=== PATIENT | female | born 1990 | race Caucasian/White ===

== ENCOUNTER 2020-10-24 09:24 | Inpatient (IN) | payer OTHER ==
[2020-10-24] MEDS ORDERED: Sodium Chloride 0.9% 10 ML Syringe FLUSH PRN (11:42)
[2020-10-24] MEDS ORDERED: Nalbuphine 10 MG/1 ML Vial IVPUSH PRN (11:42)
[2020-10-24] MEDS ORDERED: Lidocaine 1% 50 ML MDV INJECT ONE (11:42)
[2020-10-24] MEDS ORDERED: Ondansetron 4 MG/2 ML SDV IVPUSH PRN (11:42)
[2020-10-24] MEDS ORDERED: Oxytocin/Lactated Ringers 10 UNIT/1,000 ML BAG IV SCH (11:45)
[2020-10-24] MEDS ORDERED: Lactated Ringers 1,000 ML IV SCH (11:45)
--- NOTE | 2020-10-24 12:18 | PCM.LDHP ---
L&D History of Present Illness - General Date of Service: 10/24/20 Admit Problem/Dx: Patient Status Order with Admit Dx/Problem 10/24/20 11:42 Patient Status [ADT] Routine Admission Diagnosis/Problem Admission Diagnosis/Problem - History of Present Illness Introduction:: Patient is a 30yo at 39 0/7 weeks gestation who presents today for regular painful contractions that began at 0230 this morning. They are increasing in strength and frequency. She denies vaginal bleeding or leakage. She has been perceiving adequate movements. She had good care. complications: none OB Labs: Blood Type: A+ Ab screen: Negative Hep B sAg: Negative HIV: Negative RPR: Negative Rubella: Immune GC/Chlamydia: Negative Glucose screen: Passed 1 hr GBS: Negative - Related Data Allergies/Adverse Reactions: Allergies Allergy/AdvReac Type Severity Reaction Status Date / Time No Known Allergies Allergy Verified 10/24/20 09:36 H&P Review of Systems - Review of Systems: Review Of Systems: Comprehensive ROS is negative, except as noted in HPI. L&D Exam - Exam Exam: See Below - Vital Signs Weight: 73.573 kg - Carter Score Carter Score Cervix Position: Posterior Carter Score Consistency: Soft Carter Score Effacement: 51-70% Carter Score Dilation: 3-4 cm Carter Score 's Station: -2 Carter Score Total: 7 - Exam General: Alert, Oriented Lungs: Clear to Auscultation, Normal Respiratory Effort Cardiovascular: Regular Rate, Regular Rhythm, Normal S1, Normal S2 Extremities: No Pedal Edema Skin: Warm, Dry, Intact Neurological: No: Clonus - Problem List (1) Active labor at term SNOMED Code(s): 65623536 ICD Code: [id number] - Status: Acute Current Visit: Yes (2) Term SNOMED Code(s): 70648270 ICD Code: Z34.90 - ENCNTR FOR SUPRVSN OF NORMAL , UNSP, UNSP TRIMESTER Status: Acute Current Visit: Yes Problem List Initiated/Reviewed/Updated: Yes Orders Last 24hrs: Active Orders 24 hr Category Date Time Status Patient Status [ADT] Routine ADT 10/24/20 11:42 Active Activity as Tolerated [RC] PFP Care 10/24/20 11:42 Active Communication Order [RC] ASDIRECTED Care 10/24/20 11:42 Active Heart Tones [RC] ASDIRECTED Care 10/24/20 11:43 Active Non Stress Test [RC] PER UNIT ROUTINE Care 10/24/20 09:36 Active Notify Provider [RC] PFP Care 10/24/20 11:42 Active Notify Provider [RC] PRN Care 10/24/20 11:42 Active Peripheral IV Care [RC] . DIRECTED Care 10/24/20 11:43 Active Vital Signs [RC] PER UNIT ROUTINE Care 10/24/20 09:36 Active Regular Diet [DIET] Diet 10/24/20 Lunch Active CBC WITH AUTO DIFF [HEME] Stat Lab 10/24/20 11:42 Ordered CORONAVIRUS COVID-19 DORINDA [MOLEC] Stat Lab 10/24/20 11:45 Received RAPID PLASMA REAGIN,RPR [CHEM] Routine Lab 10/24/20 11:42 Ordered Lactated Ringers [Ringers, Lactated] 1,000 ml Med 10/24/20 11:45 Active IV ASDIRECTED Nalbuphine [Nubain] Med 10/24/20 11:42 Active 10 mg IVPUSH Q2H PRN Ondansetron [Zofran] Med 10/24/20 11:42 Active 4 mg IVPUSH Q4H PRN Oxytocin/Lactated Ringers [Pitocin in LR 10 Units/1,000 Med 10/24/20 11:45 Active ML] 10 unit in 1,000 ml IV .CONTINUOUS Sodium Chloride 0.9% [Saline Flush] Med 10/24/20 11:42 Active 10 ml FLUSH ASDIRECTED PRN Electronic Heart Tones Ext w TOCO [WOMSER] Oth 10/24/20 11:42 Ordered Routine Electronic Heart Tones Internal [WOMSER] Per Unit Oth 10/24/20 11:42 Ordered Routine Peripheral IV Insertion Adult [OM.PC] Routine Oth 10/24/20 11:42 Ordered Resuscitation Status Routine Resus Stat 10/24/20 09:36 Ordered Medication Orders Lactated Ringer's (Ringers, Lactated) 1,000 mls @ 100 mls/hr IV ASDIRECTED GLYNN Oxytocin/Lactated Ringer's (Pitocin In Lr 10 Units/1,000 Ml) 10 unit in 1,000 mls @ 500 mls/hr IV .CONTINUOUS GLYNN Nalbuphine HCl (Nalbuphine 10 Mg/1 Ml Vial) 10 mg IVPUSH Q2H PRN PRN Reason: Pain Ondansetron HCl (Ondansetron 4 Mg/2 Ml Sdv) 4 mg IVPUSH Q4H PRN PRN Reason: Nausea/Vomiting Sodium Chloride (Sodium Chloride 0.9% 10 Ml Syringe) 10 ml FLUSH ASDIRECTED PRN PRN Reason: Keep Vein Open Assessment/Plan Comment:: 30 yo presenting to labor and delivery for normal labor Admit to Labor and Delivery EFM/toco and monitor for progress of labor. Expectant management. Epidural analgesia as desired Anticipate vaginal delivery. Libby Mcknight MD Family Medicine
--- NOTE | 2020-10-24 13:25 | PCM.SN.2 ---
- Free Text/Narrative Note: 1322 notified by nursing of complete/near complete dilation, membranes intact. breathing through contractions cervix 9-lip/100/-2 with bulging bag category 1 EFM AROM completed for moderate meconium stained fluid. continue expectant management. brooke
[2020-10-24] MEDS ORDERED: ceFAZolin 2 GM in Premix Bag 1 BAG IV ONE (14:12)
--- NOTE | 2020-10-24 15:16 | PCM.DEL ---
L & D Note - General Info Date of Service: 10/24/20 - Delivery Note Labor: Spontaneous, Augmented by ARM Infant Delivery Method: Spontaneous Vaginal Delivery-Single Delivery Mode: Spontaneous Presentation: Left Occiput Anterior (ALINA) Nuchal Cord: None Anesthesia Type: None Anesthetic: Lidocaine (Xylocaine) 1% Plain Local Anesthetic Volume: 2cc Amniotic Fluid Description: Meconium Stained Episiotomy Type: None Laceration: Labial (right, repaired), Sulcus (superficial left, not repaired as was hemostatic) Placenta: Manual Removal Cord: 3 Vessels Estimated Blood Loss: 300 [place]: Suctioned, Bulb Syringe, Stimulated, Warmed, Silva Used, Warmer Used Delivery Comments (Free Text/Narrative):: Patient presented in active labor. Labor was augmented with AROM. She did not receive epidural anesthesia. She progressed to complete without complication. Head delivered spontaneously. No cord complications. Body delivered without incident. Vigorous placed on mom's chest, dried and stimulated. Delayed cord clamping performed x 1 minute. Cord clamped and cut. Placenta delivered by manual extraction due to cord avulsion. It was removed into large pieces without any fragments palpated on uterine exploration manually. No perineal lacerations. Right labial laceration repaired in usual fashion. Left vaginal sulcus laceration was hemostatic and was not repaired. EBL 300ml. - General Info Date of Service: 10/24/20 Admission Dx/Problem (Free Text): Patient Status Order with Admit Dx/Problem 10/24/20 11:42 Patient Status [ADT] Routine Admission Diagnosis/Problem Admission Diagnosis/Problem - Patient Data Vitals - Most Recent: Last Vital Signs Temp 97.8 F 10/24/20 09:40 Pulse 70 10/24/20 09:40 Resp 14 10/24/20 09:40 BP 131/81 10/24/20 09:40 Pulse Ox 99 10/24/20 09:40 Weight - Most Recent: 73.573 kg Lab Results Last 24 Hours: Laboratory Results - last 24 hr 10/24/20 10/24/20 Range/Units 11:45 12:05 WBC 10.27 H (3.98-10.04) K/mm3 RBC 4.82 (3.98-5.22) M/mm3 Hgb 15.0 D (11.2-15.7) gm/dl Hct 43.6 (34.1-44.9) % MCV 90.5 (79.4-94.8) fl MCH 31.1 (25.6-32.2) pg MCHC 34.4 (32.2-35.5) g/dl RDW Std Deviation 43.9 (36.4-46.3) fL Plt Count 195 (182-369) K/mm3 MPV 11.5 (9.4-12.3) fl Neut % (Auto) 83.8 H (34.0-71.1) % Lymph % (Auto) 10.5 L (19.3-51.7) % [place] % (Auto) 5.0 (4.7-12.5) % Eos % (Auto) 0.3 L (0.7-5.8) Baso % (Auto) 0.1 (0.1-1.2) % Neut # (Auto) 8.61 H (1.56-6.13) K/mm3 Lymph # (Auto) 1.08 L (1.18-3.74) K/mm3 [place] # (Auto) 0.51 H (0.24-0.36) K/mm3 Eos # (Auto) 0.03 L (0.04-0.36) K/mm3 Baso # (Auto) 0.01 (0.01-0.08) K/mm3 SARS-CoV-2 RNA (DORINDA) Negative (NEGATIVE) Med Orders - Current: Current Medications Lactated Ringer's (Ringers, Lactated) 1,000 mls @ 100 mls/hr IV ASDIRECTED GLYNN Oxytocin/Lactated Ringer's (Pitocin In Lr 10 Units/1,000 Ml) 10 unit in 1,000 mls @ 500 mls/hr IV .CONTINUOUS GLYNN Last Admin: 10/24/20 13:50 Dose: 500 mls/hr Documented by: Nalbuphine HCl (Nalbuphine 10 Mg/1 Ml Vial) 10 mg IVPUSH Q2H PRN PRN Reason: Pain Last Admin: 10/24/20 13:00 Dose: 10 mg Documented by: Ondansetron HCl (Ondansetron 4 Mg/2 Ml Sdv) 4 mg IVPUSH Q4H PRN PRN Reason: Nausea/Vomiting Sodium Chloride (Sodium Chloride 0.9% 10 Ml Syringe) 10 ml FLUSH ASDIRECTED PRN PRN Reason: Keep Vein Open Discontinued Medications Cefazolin Sodium/Dextrose 2 gm (/ Premix) 50 mls @ 100 mls/hr IV ONETIME ONE Stop: 10/24/20 14:41 Lidocaine HCl (Lidocaine 1% 50 Ml Mdv) 50 ml INJECT ONETIME ONE Stop: 10/24/20 11:43 Last Admin: 10/24/20 14:02 Dose: 50 ml Documented by: - Problem List & Annotations (1) Active labor at term SNOMED Code(s): 01370996 Code(s): XZG2488 - Status: Resolved Current Visit: Yes (2) Term SNOMED Code(s): 79880453 Code(s): Z34.90 - ENCNTR FOR SUPRVSN OF NORMAL , UNSP, UNSP TRIMESTER Status: Acute Current Visit: Yes (3) (normal spontaneous vaginal delivery) SNOMED Code(s): 06839206, 304017434 Code(s): O80 - ENCOUNTER FOR FULL-TERM UNCOMPLICATED DELIVERY Status: Acute Current Visit: Yes - Problem List Review Problem List Initiated/Reviewed/Updated: Yes - My Orders Last 24 Hours: My Active Orders 10/24/20 09:36 Non Stress Test [RC] PER UNIT ROUTINE Vital Signs [RC] PER UNIT ROUTINE Resuscitation Status Routine 10/24/20 Lunch Regular Diet [DIET] 10/24/20 11:42 Patient Status [ADT] Routine Activity as Tolerated [RC] PFP Communication Order [RC] ASDIRECTED Notify Provider [RC] PFP Notify Provider [RC] PRN Nalbuphine [Nubain] 10 mg IVPUSH Q2H PRN Ondansetron [Zofran] 4 mg IVPUSH Q4H PRN Sodium Chloride 0.9% [Saline Flush] 10 ml FLUSH ASDIRECTED PRN Electronic Heart Tones Ext w TOCO [WOMSER] Routine Electronic Heart Tones Internal [WOMSER] Per Unit Routine Peripheral IV Insertion Adult [OM.PC] Routine 10/24/20 11:43 Heart Tones [RC] ASDIRECTED Peripheral IV Care [RC] . DIRECTED 10/24/20 11:45 Lactated Ringers [Ringers, Lactated] 1,000 ml IV ASDIRECTED Oxytocin/Lactated Ringers [Pitocin in LR 10 Units/1,000 ML] 10 unit in 1,000 ml IV .CONTINUOUS 10/24/20 12:05 RAPID PLASMA REAGIN,RPR [CHEM] Routine - Plan Plan:: 30 yo G1, now P1 s/p complicated by cord avulsion during delivery of placenta. Placenta manually removed without difficulty. Routine cares. 2g ancef x 1 for prophylaxis due to manual placenta removal. Plans to breastfeed. brooke
[2020-10-24] MEDS ORDERED: Ibuprofen 600 MG Tab PO PRN (15:22)
[2020-10-24] MEDS ORDERED: Docusate Sodium 100 MG Cap PO PRN (15:22)
[2020-10-24] MEDS ORDERED: Acetaminophen 325 MG Tab PO PRN (15:22)
[2020-10-24] MEDS ORDERED: Witch Hazel Medicated Pads 40/Jar TOP PRN (15:22)
[2020-10-24] MEDS ORDERED: Benzocaine/Menthol 20%-0.5% Spray 56 GM Canister TOP PRN (15:22)
--- NOTE | 2020-10-25 08:22 | PCM.PNPP ---
- General Info Date of Service: 10/25/20 Admission Dx/Problem (Free Text): Patient Status Order with Admit Dx/Problem 10/24/20 11:42 Patient Status [ADT] Routine Admission Diagnosis/Problem Admission Diagnosis/Problem Subjective Update: Mary Ann is a 30 yo G1 now P1 female day 1 status post normal spontaneous vaginal delivery complicated by retained placenta requiring manual removal at delivery. Doing well this morning. Lochia is moderate. Denies fever or chills. Breast-feeding is going fairly well. She is urinating normally. No bowel movement yet. Denies new concerns. - Review of Systems General: Reports: No Symptoms HEENT: Reports: No Symptoms Pulmonary: Reports: No Symptoms Cardiovascular: Reports: No Symptoms Gastrointestinal: Reports: No Symptoms Genitourinary: Reports: No Symptoms Musculoskeletal: Reports: No Symptoms Skin: Reports: No Symptoms Neurological: Reports: No Symptoms Psychiatric: Reports: No Symptoms - General Info Date of Service: 10/25/20 - Patient Data Vital Signs - Most Recent: Last Vital Signs Temp 97.7 F 10/25/20 05:16 Pulse 68 10/25/20 05:16 Resp 14 10/25/20 05:16 BP 112/71 10/25/20 05:16 Pulse Ox 99 10/25/20 05:16 Weight - Most Recent: 73.573 kg Lab Results - Last 24 Hours: Laboratory Results - last 24 hr 10/24/20 10/24/20 10/24/20 Range/Units 11:45 12:05 12:05 WBC 10.27 H (3.98-10.04) K/mm3 RBC 4.82 (3.98-5.22) M/mm3 Hgb 15.0 D (11.2-15.7) gm/dl Hct 43.6 (34.1-44.9) % MCV 90.5 (79.4-94.8) fl MCH 31.1 (25.6-32.2) pg MCHC 34.4 (32.2-35.5) g/dl RDW Std Deviation 43.9 (36.4-46.3) fL Plt Count 195 (182-369) K/mm3 MPV 11.5 (9.4-12.3) fl Neut % (Auto) 83.8 H (34.0-71.1) % Lymph % (Auto) 10.5 L (19.3-51.7) % [place] % (Auto) 5.0 (4.7-12.5) % Eos % (Auto) 0.3 L (0.7-5.8) Baso % (Auto) 0.1 (0.1-1.2) % Neut # (Auto) 8.61 H (1.56-6.13) K/mm3 Lymph # (Auto) 1.08 L (1.18-3.74) K/mm3 [place] # (Auto) 0.51 H (0.24-0.36) K/mm3 Eos # (Auto) 0.03 L (0.04-0.36) K/mm3 Baso # (Auto) 0.01 (0.01-0.08) K/mm3 RPR Non-reactive (NONREACTIVE) SARS-CoV-2 RNA (DORINDA) Negative (NEGATIVE) Med Orders - Current: Current Medications Acetaminophen (Acetaminophen 325 Mg Tab) 650 mg PO Q4H PRN PRN Reason: mild pain or fever Benzocaine/Menthol (Benzocaine/Menthol 20%-0.5% [place] 56 Gm Canister) 0 gm TOP ASDIRECTED PRN PRN Reason: Perineal Comfort Measure Last Admin: 10/24/20 16:51 Dose: 1 can Documented by: Docusate Sodium (Docusate Sodium 100 Mg Cap) 100 mg PO BID PRN PRN Reason: Constipation Ibuprofen (Ibuprofen 600 Mg Tab) 600 mg PO Q6H PRN PRN Reason: Mild pain or fever Last Admin: 10/24/20 19:32 Dose: 600 mg Documented by: Prenat Multivit/Software Implementation Project Manager/Iron/Folic Ac ( Multivitamin With Calcium/Folic Acid/Iron Tab) 1 each PO DAILY GLYNN Sodium Chloride (Sodium Chloride 0.9% 10 Ml Syringe) 10 ml FLUSH ASDIRECTED PRN PRN Reason: Keep Vein Open Witch Peyton (Witch Peyton Medicated Pads 40/Jar) 1 pad TOP ASDIRECTED PRN PRN Reason: Perineal Comfort Measure Last Admin: 10/24/20 16:52 Dose: 1 tub Documented by: Discontinued Medications Lactated Ringer's (Ringers, Lactated) 1,000 mls @ 100 mls/hr IV ASDIRECTED GLYNN Oxytocin/Lactated Ringer's (Pitocin In Lr 10 Units/1,000 Ml) 10 unit in 1,000 mls @ 500 mls/hr IV .CONTINUOUS GLYNN Last Admin: 10/24/20 13:50 Dose: 500 mls/hr Documented by: Cefazolin Sodium/Dextrose 2 gm (/ Premix) 50 mls @ 100 mls/hr IV ONETIME ONE Stop: 10/24/20 14:41 Last Admin: 10/24/20 16:51 Dose: 100 mls/hr Documented by: Lidocaine HCl (Lidocaine 1% 50 Ml Mdv) 50 ml INJECT ONETIME ONE Stop: 10/24/20 11:43 Last Admin: 10/24/20 14:02 Dose: 50 ml Documented by: Nalbuphine HCl (Nalbuphine 10 Mg/1 Ml Vial) 10 mg IVPUSH Q2H PRN PRN Reason: Pain Last Admin: 10/24/20 13:00 Dose: 10 mg Documented by: Ondansetron HCl (Ondansetron 4 Mg/2 Ml Sdv) 4 mg IVPUSH Q4H PRN PRN Reason: Nausea/Vomiting - Interaction Disposition, : [place] at Bedside Infant Interaction: Holding Infant Feeding: Breastfed ; Nursed Well Support Person: - Recovery Exam Fundal Tone: Firm Fundal Level: 2 Fingerbreadths Below Umbilicus Fundal Placement: Midline Lochia Amount: Small Lochia Color: Rubra/Red Perineum Description: Other (see below) Other Perinuem Description: labial repair Episiotomy/Laceration: Approximated Bladder Status: Voiding Urinary Elimination: Straight Catheterization, Other (see below) Other Urinary Elimination, : I/O cath @ 1930 x 750mls, will attempt to void shortly - Exam General: Alert, Oriented Neck: Supple Lungs: Clear to Auscultation, Normal Respiratory Effort Cardiovascular: Regular Rate, Regular Rhythm GI/Abdominal Exam: Normal Bowel Sounds, Soft, Non-Tender, No Distention Extremities: Normal Inspection, Normal Range of Motion, Non-Tender, No Pedal Edema, Normal Capillary Refill Skin: Warm, Dry, Intact Neurological: No New Focal Deficit Psy/Mental Status: Alert, Normal Affect, Normal Mood - Problem List & Annotations (1) Active labor at term SNOMED Code(s): 56732361 Code(s): SAT3660 - Status: Resolved Current Visit: Yes (2) Term SNOMED Code(s): 48718819 Code(s): Z34.90 - ENCNTR FOR SUPRVSN OF NORMAL , UNSP, UNSP TRIMESTER Status: Acute Current Visit: Yes (3) (normal spontaneous vaginal delivery) SNOMED Code(s): 45885209, 529970285 Code(s): O80 - ENCOUNTER FOR FULL-TERM UNCOMPLICATED DELIVERY Status: Acute Current Visit: Yes - Problem List Review Problem List Initiated/Reviewed/Updated: Yes - My Orders Last 24 Hours: My Active Orders 10/24/20 09:36 Resuscitation Status Routine 10/24/20 Lunch Regular Diet [DIET] 10/24/20 11:42 Sodium Chloride 0.9% [Saline Flush] 10 ml FLUSH ASDIRECTED PRN Electronic Heart Tones Ext w TOCO [WOMSER] Routine Peripheral IV Insertion Adult [OM.PC] Routine 10/24/20 11:43 Peripheral IV Care [RC] Q4HR 10/24/20 15:22 Patient Status [ADT] Routine Activity as Tolerated [RC] PER UNIT ROUTINE Vital Signs [RC] 03,,, Acetaminophen [TylenoL] 650 mg PO Q4H PRN Benzocaine/Menthol [Dermoplast Pain Relief [place]] See Dose Instructions TOP ASDIRECTED PRN Docusate Sodium [Colace] 100 mg PO BID PRN Ibuprofen [Motrin] 600 mg PO Q6H PRN witch Peyton [Tucks] 1 pad TOP ASDIRECTED PRN Assess Lochia [WOMSER] Per Unit Routine Assess Uterine Involution [WOMSER] Per Unit Routine Breast Pump [WOMSER] Per Unit Routine Perineal Care [OM.PC] Per Unit Routine Sitz Bath [OM.PC] Per Unit Routine 10/24/20 15:30 Heat Therapy [OM.PC] PRN 10/25/20 09:00 Vit with Ca/FA/Iron [ Plus Iron] 1 each PO DAILY 10/25/20 15:30 Heat Therapy [OM.PC] PRN - Assessment Assessment:: 30-year-old G1, P1 female day 1 status post vaginal delivery. Doing well. - Plan Plan:: 30 yo G1, now P1 s/p complicated by cord avulsion during delivery of placenta. Placenta manually removed without difficulty. Routine cares. Desires 24 discharge if Baby's doing well. brooke
[2020-10-25] MEDS ORDERED: Prenatal Multivitamin with Calcium/Folic Acid/Iron Tab PO SCH (09:00)
--- NOTE | 2020-11-04 09:18 | PCM.DCSUM1 ---
Discharge Summary - Hospital Course Free Text/Narrative:: Mckenna is a 30 yo G1, now P1 who is day 1 s/p . Delivery complications: Retained placenta requiring manual extraction. Ancef x1 given. No bleeding complications. course: Uncomplicated, pain well controlled, lochia mild/moderate, urinating spontaneously, bowel function has returned. Maternal labs: Blood type A+ Ab screen: Negative rubella: Immune - Discharge Data Discharge Date: 10/25/20 Discharge Disposition: Home, Self-Care 01 Condition: Good - Referral to Home Health Primary Care Physician: Libby Mcknight MD - Discharge Diagnosis/Problem(s) (1) Active labor at term SNOMED Code(s): 51472914 ICD Code: SCQ1573 - Status: Resolved (2) Term SNOMED Code(s): 41069219 ICD Code: Z34.90 - ENCNTR FOR SUPRVSN OF NORMAL , UNSP, UNSP TRIMESTER Status: Acute (3) (normal spontaneous vaginal delivery) SNOMED Code(s): 68824415, 729192595 ICD Code: O80 - ENCOUNTER FOR FULL-TERM UNCOMPLICATED DELIVERY Status: Acute - Patient Instructions Diet: Regular Diet as Tolerated Activity: As Tolerated Notify Provider of: Fever, Increased Pain, Swelling and Redness, Drainage, Nausea and/or Vomiting - Discharge Plan Home Medications: Home Meds Pnv No.95/Ferrous Fum/Folic AC [ Tablet] 1 tab PO DAILY 10/24/20 [History] Acetaminophen [Tylenol] 650 mg PO Q4H PRN tablet 10/25/20 [Rx] Benzocaine/Menthol [Dermoplast Pain Relief [place]] 1 applic TOP ASDIRECTED PRN canister 10/25/20 [Rx] Docusate Sodium [Colace] 100 mg PO BID PRN cap 10/25/20 [Rx] Ibuprofen [Motrin] 600 mg PO Q6H PRN tablet 10/25/20 [Rx] witch Peyton [Tucks] 1 pad TOP ASDIRECTED PRN pad 10/25/20 [Rx] Oxygen Therapy Mode: Room Air Patient Handouts: Tips for a Good Latch, Care After Vaginal Delivery Referrals: Libby Mcknight MD [Primary Care Provider] - (Please call the clinic and schedule a 6 week follow up appointment, sooner with concerns.) - Discharge Summary/Plan Comment DC Time >30 min.: No Total # of Minutes for Discharge Time: 20 - General Info Date of Service: 11/04/20 Admission Dx/Problem (Free Text: Patient Status Order with Admit Dx/Problem 10/24/20 11:42 Patient Status [ADT] Routine Admission Diagnosis/Problem Admission Diagnosis/Problem Subjective Update: Mary Ann is a 30 yo G1 now P1 female day 1 status post normal spontaneous vaginal delivery complicated by retained placenta requiring manual removal at delivery. Doing well this morning. Lochia is moderate. Denies fever or chills. Breast-feeding is going fairly well. She is urinating normally. No bowel movement yet. Denies new concerns. - Review of Systems General: Reports: No Symptoms HEENT: Reports: No Symptoms Pulmonary: Reports: No Symptoms Cardiovascular: Reports: No Symptoms Gastrointestinal: Reports: No Symptoms Genitourinary: Reports: No Symptoms Musculoskeletal: Reports: No Symptoms Skin: Reports: No Symptoms Neurological: Reports: No Symptoms Psychiatric: Reports: No Symptoms - Patient Data Vitals - Most Recent: Last Vital Signs Temp 97.9 F 10/25/20 15:11 Pulse 81 10/25/20 15:11 Resp 14 10/25/20 08:54 BP 107/68 10/25/20 15:11 Pulse Ox 100 10/25/20 15:11 Weight - Most Recent: 73.573 kg Med Orders - Current: Current Medications Discontinued Medications Acetaminophen (Acetaminophen 325 Mg Tab) 650 mg PO Q4H PRN PRN Reason: mild pain or fever Benzocaine/Menthol (Benzocaine/Menthol 20%-0.5% [place] 56 Gm Canister) 0 gm TOP ASDIRECTED PRN PRN Reason: Perineal Comfort Measure Last Admin: 10/24/20 16:51 Dose: 1 can Documented by: Docusate Sodium (Docusate Sodium 100 Mg Cap) 100 mg PO BID PRN PRN Reason: Constipation Lactated Ringer's (Ringers, Lactated) 1,000 mls @ 100 mls/hr IV ASDIRECTED GLYNN Oxytocin/Lactated Ringer's (Pitocin In Lr 10 Units/1,000 Ml) 10 unit in 1,000 mls @ 500 mls/hr IV .CONTINUOUS GLYNN Last Admin: 10/24/20 13:50 Dose: 500 mls/hr Documented by: Cefazolin Sodium/Dextrose 2 gm (/ Premix) 50 mls @ 100 mls/hr IV ONETIME ONE Stop: 10/24/20 14:41 Last Admin: 10/24/20 16:51 Dose: 100 mls/hr Documented by: Ibuprofen (Ibuprofen 600 Mg Tab) 600 mg PO Q6H PRN PRN Reason: Mild pain or fever Last Admin: 10/24/20 19:32 Dose: 600 mg Documented by: Lidocaine HCl (Lidocaine 1% 50 Ml Mdv) 50 ml INJECT ONETIME ONE Stop: 10/24/20 11:43 Last Admin: 10/24/20 14:02 Dose: 50 ml Documented by: Nalbuphine HCl (Nalbuphine 10 Mg/1 Ml Vial) 10 mg IVPUSH Q2H PRN PRN Reason: Pain Last Admin: 10/24/20 13:00 Dose: 10 mg Documented by: Ondansetron HCl (Ondansetron 4 Mg/2 Ml Sdv) 4 mg IVPUSH Q4H PRN PRN Reason: Nausea/Vomiting Prenat Multivit/[place]/Iron/Folic Ac ( Multivitamin With Calcium/Folic Acid/Iron Tab) 1 each PO DAILY GLYNN Sodium Chloride (Sodium Chloride 0.9% 10 Ml Syringe) 10 ml FLUSH ASDIRECTED PRN PRN Reason: Keep Vein Open Witch Peyton (Witch Peyton Medicated Pads 40/Jar) 1 pad TOP ASDIRECTED PRN PRN Reason: Perineal Comfort Measure Last Admin: 10/24/20 16:52 Dose: 1 tub Documented by: - Exam General: Reports: Alert, Oriented HEENT: Reports: Pupils Equal, EOMI, Mucous Membr. Moist/[place] Neck: Reports: Supple Lungs: Reports: Clear to Auscultation, Normal Respiratory Effort Cardiovascular: Reports: Regular Rate, Regular Rhythm GI/Abdominal Exam: Normal Bowel Sounds, Soft, Non-Tender, No Organomegaly, No Distention, No Abnormal Bruit, No Mass, Pelvis Stable Rectal (Female) Exam: Normal Exam, Normal Rectal Tone Back Exam: Reports: Normal Inspection, Full Range of Motion Extremities: Normal Inspection, Normal Range of Motion, Non-Tender, No Pedal Edema, Normal Capillary Refill Skin: Reports: Warm, Dry, Intact Wound/Incisions: Reports: Healing Well Neurological: Reports: No New Focal Deficit Psy/Mental Status: Reports: Alert, Normal Affect, Normal Mood
== END 2020-10-25 16:50 | disposition home or self-care (01) | DRG 807 ==
LOC: JD.OBCHECK 09:24 → JD.OB 09:33 → JD.OBCHECK 11:42 → JD.OB 11:42 → OBSVTOIN 13:47 → JD.OB 13:48
PROVIDERS: ADMIT Family Medicine; ATTEND Family Medicine
PROC: 10E0XZZ Delivery of Products of Conception, External Approach (ICD-10-PCS; principal; 2020-10-24)
PROC: 10D17Z9 Manual Extraction of Products of Conception, Retained, Via Natural or Artificial Opening (ICD-10-PCS; 2020-10-24)
PROC: 10907ZC Drainage of Amniotic Fluid, Therapeutic from Products of Conception, Via Natural or Artificial Opening (ICD-10-PCS; 2020-10-24)
PROC: 0HQ9XZZ Repair Perineum Skin, External Approach (ICD-10-PCS; 2020-10-24)
DX: O77.0 Labor and delivery complicated by meconium in amniotic fluid (principal); Z37.0 Single live birth; Z3A.39 39 weeks gestation of pregnancy; O73.1 Retained portions of placenta and membranes, without hemorrhage; O69.89X0 Labor and delivery complicated by other cord complications, not applicable or unspecified; O70.0 First degree perineal laceration during delivery; Z20.822 Contact with and (suspected) exposure to COVID-19
CPT/HCPCS: 36415; 51701; 59025; 59409; 85025; 86592; A9270-GY; J0690; J2001; J2300; J2590; U0002

== ENCOUNTER 2022-09-06 17:05 | Inpatient (IN) | payer BC ==
[2022-09-06] MEDS ORDERED: ceFAZolin 2 GM in Sodium Chloride 0.9% 50 ML IV ONE (17:35)
[2022-09-06] MEDS ORDERED: Ondansetron 4 MG/2 ML SDV IVPUSH PRN ×2 (17:35→20:29)
[2022-09-06] MEDS ORDERED: Sodium Chloride 0.9% 10 ML Syringe FLUSH PRN (17:35)
[2022-09-06] MEDS ORDERED: Metoclopramide 10 MG/2 ML SDV IVPUSH ONE (17:35)
[2022-09-06] MEDS ORDERED: Citric Acid/Sodium Citrate Solution 30 ML Cup PO ONE (17:35)
[2022-09-06] MEDS: Lactated Ringers 1,000 ML IV SCH ×2 (17:45→18:14)
[2022-09-06 17:48] LABS: HEMATOCRIT 40.3 % (34.1-44.9); HEMOGLOBIN 13.5 gm/dl (11.2-15.7); MEAN CORPUSCULAR HEMOGLOBIN 30.8 pg (25.6-32.2); MEAN CORPUSCULAR HGB CONC 33.5 g/dl (32.2-35.5); MEAN PLATELET VOLUME 11.7 fl (9.4-12.3); PLATELET COUNT,PLT 162 K/mm3 (182-369); RED BLOOD CELL COUNT 4.38 M/mm3 (3.98-5.22); WHITE BLOOD CELL COUNT,WBC 8.71 K/mm3 (3.98-10.04)
[2022-09-06] MEDS ORDERED: Ondansetron 4 MG/2 ML SDV ONE (19:06)
[2022-09-06] MEDS ORDERED: Phenylephrine 1% 10 MG/ML SDV ONE (19:06)
[2022-09-06] MEDS ORDERED: Oxytocin 10 Units/1 ML SDV ONE ×2 (19:06→19:49)
[2022-09-06] MEDS ORDERED: Morphine PF 1 MG/ML Amp ONE (19:07)
[2022-09-06] MEDS ORDERED: Oxytocin/Lactated Ringers 10 UNIT/1,000 ML BAG IV SCH (19:15)
[2022-09-06] MEDS ORDERED: ceFAZolin 2 GM Vial ONE (19:33)
[2022-09-06] MEDS ORDERED: Ketorolac 30 MG/ML SDV IVPUSH ONE (20:28)
[2022-09-06] MEDS ORDERED: Meperidine 50 MG/ML Vial IVPUSH PRN (20:29)
[2022-09-06] MEDS ORDERED: diphenhydrAMINE 50 MG/ML SDV IVPUSH PRN (20:29)
[2022-09-06] MEDS ORDERED: fentaNYL 100 MCG/2 ML SDV IVPUSH PRN (20:29)
[2022-09-06] MEDS ORDERED: Sodium Chloride 0.9% 10 ML Syringe FLUSH SCH (21:00)
[2022-09-07] MEDS ORDERED: Naloxone 0.4 MG/ML SDV IVPUSH PRN (00:07)
[2022-09-07] MEDS ORDERED: Acetaminophen/oxyCODONE 325-5 MG Tab PO PRN ×2 (00:07)
[2022-09-07] MEDS ORDERED: diphenhydrAMINE 50 MG/ML SDV IVPUSH PRN (00:07)
[2022-09-07] MEDS ORDERED: Docusate Sodium 100 MG Cap PO PRN (00:07)
[2022-09-07] MEDS ORDERED: Ondansetron 4 MG/2 ML SDV IV PRN (00:07)
[2022-09-07] MEDS ORDERED: ePHEDrine 50 MG/ML SDV IVPUSH PRN (00:07)
[2022-09-07] MEDS ORDERED: Dextrose 5%-Lactated Ringers 1,000 ML IV SCH (00:07)
[2022-09-07] MEDS: Ketorolac 30 MG/ML SDV IVPUSH SCH ×3 (02:30→16:58)
[2022-09-07 06:23] LABS: BASOPHILS ABSOLUTE AUTO 0.01 K/mm3 (0.01-0.08); BASOPHILS PERCENT AUTO 0.1 % (0.1-1.2); EOSINOPHILS ABSOLUTE AUTO 0.09 K/mm3 (0.04-0.36); EOSINOPHILS PERCENT AUTO 0.9 (0.7-5.8); HEMATOCRIT 37.4 % (34.1-44.9); HEMOGLOBIN 12.3 gm/dl (11.2-15.7); IMMATURE GRAN ABSOLUTE AUTO 0.02 K/mm3 (0.00-0.10); IMMATURE GRAN PERCENT AUTO 0.2 % (<=1.0); LYMPHOCYTES PERCENT AUTO 17.8 % (19.3-51.7); MEAN CORPUSCULAR HEMOGLOBIN 30.4 pg (25.6-32.2); MEAN CORPUSCULAR HGB CONC 32.9 g/dl (32.2-35.5); MEAN CORPUSCULAR VOLUME 92.3 fl (79.4-94.8); MEAN PLATELET VOLUME 11.6 fl (9.4-12.3); MONOCYTES ABSOLUTE AUTO 0.79 K/mm3 (0.24-0.36); MONOCYTES PERCENT AUTO 8.3 % (4.7-12.5); NEUTROPHILS ABSOLUTE AUTO 6.93 K/mm3 (1.56-6.13); NEUTROPHILS PERCENT AUTO 72.7 % (34.0-71.1); PLATELET COUNT,PLT 143 K/mm3 (182-369); RED BLOOD CELL COUNT 4.05 M/mm3 (3.98-5.22); WHITE BLOOD CELL COUNT,WBC 9.54 K/mm3 (3.98-10.04)
[2022-09-07] MEDS: Ibuprofen 600 MG Tab PO PRN (17:32)
[2022-09-07] MEDS ORDERED: Ibuprofen 600 MG Tab PO PRN (20:00)
[2022-09-08] MEDS: Ibuprofen 600 MG Tab PO PRN ×2 (05:00→12:16)
== END 2022-09-08 13:30 | disposition home or self-care (01) | DRG 540 ==
LOC: JD.OBCHECK 17:05 → JD.OB 17:13 → JD.OBCHECK 17:35 → JD.OB 18:11
PROVIDERS: ADMIT Obstetrics & Gynecology; ATTEND Obstetrics & Gynecology
PROC: 10D00Z1 Extraction of Products of Conception, Low, Open Approach (ICD-10-PCS; principal; 2022-09-06)
DX: O30.043 Twin pregnancy, dichorionic/diamniotic, third trimester (principal); Z3A.36 36 weeks gestation of pregnancy; Z37.2 Twins, both liveborn; O32.8XX1 Maternal care for other malpresentation of fetus, fetus 1
CPT/HCPCS: 36415; 59025; 84112; 85025; 85027; 86592; 86850; 86900; 86901; 94762; A9270-GY; J0690; J1885; J2274; J2370; J2405; J2590; J2765; J7120